=== PATIENT | male | born 1935 | race Caucasian/White ===

== ENCOUNTER → 2021-08-06 | Outpatient (CLI) | payer BC ==
[2021-08-06 12:51] LABS: ALBUMIN 4.2 g/dL (3.4-4.8)
[2021-08-06 12:52] LABS: POTASSIUM 4.8 mmol/L (3.5-5.1)
[2021-08-06 12:53] LABS: CALCIUM 9.6 mg/dL (8.3-10.5)
[2021-08-06 12:54] LABS: TOTAL PROTEIN 7.6 g/dL (6.2-8.1)
[2021-08-06 12:56] LABS: TOTAL BILIRUBIN 0.5 mg/dL (0.2-1.2)
[2021-08-06 13:05] LABS: URINE APPEARANCE HAZY; URINE BILIRUBIN NEGATIVE (NEGATIVE); URINE BLOOD 250 ery/uL (NEGATIVE); URINE COLOR YELLOW; URINE GLUCOSE NEGATIVE (NEGATIVE); URINE KETONE NEGATIVE (NEGATIVE); URINE LEUKOCYTE ESTERASE 1+ (NEGATIVE); URINE MUCUS PRESENT (NOT PRESENT); URINE NITRATE NEGATIVE (NEGATIVE); URINE PROTEIN(semi-quant) 1+ (NEGATIVE); URINE UROBILINOGEN NORMAL (NORMAL)
== END ==
LOC: LAB 11:30
PROVIDERS: Family Medicine
DX: N39.0 Urinary tract infection, site not specified (principal); R09.89 Other specified symptoms and signs involving the circulatory and respiratory systems; R41.3 Other amnesia

== ENCOUNTER → 2021-08-25 | Outpatient (CLI) | payer BC ==
[2021-08-25 16:45] LABS: URINE APPEARANCE HAZY; URINE BILIRUBIN NEGATIVE (NEGATIVE); URINE BLOOD 250 ery/uL (NEGATIVE); URINE COLOR YELLOW; URINE GLUCOSE NEGATIVE (NEGATIVE); URINE KETONE NEGATIVE (NEGATIVE); URINE LEUKOCYTE ESTERASE 2+ (NEGATIVE); URINE NITRATE NEGATIVE (NEGATIVE); URINE PROTEIN(semi-quant) 1+ (NEGATIVE); URINE UROBILINOGEN NORMAL (NORMAL); URINE WBC >50 /hpf (0-3)
[2021-08-25 16:46] LABS: URINE MUCUS PRESENT (NOT PRESENT)
== END ==
LOC: LAB 14:51
PROVIDERS: Family Medicine
DX: N39.0 Urinary tract infection, site not specified (principal)

== ENCOUNTER → 2021-09-05 | Outpatient (CLI) | payer BC ==
[2021-09-05 12:06] LABS: URINE APPEARANCE CLEAR; URINE BILIRUBIN NEGATIVE (NEGATIVE); URINE BLOOD 250 ery/uL (NEGATIVE); URINE COLOR YELLOW; URINE GLUCOSE NEGATIVE (NEGATIVE); URINE KETONE NEGATIVE (NEGATIVE); URINE LEUKOCYTE ESTERASE TRACE (NEGATIVE); URINE NITRATE NEGATIVE (NEGATIVE); URINE PROTEIN(semi-quant) TRACE (NEGATIVE); URINE UROBILINOGEN NORMAL (NORMAL); URINE WBC 0-1 /hpf (0-3)
[2021-09-05 12:07] LABS: URINE MUCUS PRESENT (NOT PRESENT)
== END ==
LOC: LAB 11:01
PROVIDERS: Family Medicine
DX: N39.0 Urinary tract infection, site not specified (principal)

== ENCOUNTER → 2022-07-22 | Outpatient (CLI) | payer BC | LOC: VAS 12:46 → RAD 12:46 | DX: I48.20 Chronic atrial fibrillation, unspecified (principal); I25.5 Ischemic cardiomyopathy ==

== ENCOUNTER → 2023-02-11 | Outpatient (CLI) | payer BC ==
[2023-02-11 12:36] LABS: URINE APPEARANCE CLEAR; URINE BILIRUBIN NEGATIVE (NEGATIVE); URINE BLOOD 250 ery/uL (NEGATIVE); URINE COLOR YELLOW; URINE GLUCOSE NEGATIVE (NEGATIVE); URINE KETONE NEGATIVE (NEGATIVE); URINE LEUKOCYTE ESTERASE NEGATIVE (NEGATIVE); URINE NITRATE NEGATIVE (NEGATIVE); URINE PROTEIN(semi-quant) TRACE (NEGATIVE); URINE UROBILINOGEN NORMAL (NORMAL); URINE WBC 0-1 /hpf (0-3)
== END ==
LOC: LAB 10:31
PROVIDERS: Urology
DX: R31.29 Other microscopic hematuria (principal)

== ENCOUNTER → 2023-05-26 | Outpatient (CLI) | payer BC ==
[2023-05-26 11:42] LABS: CALCIUM 9.1 mg/dL (8.3-10.5)
== END ==
LOC: LAB 11:14
PROVIDERS: Family Medicine
DX: N18.31 Chronic kidney disease, stage 3a (principal); F01.A0 Vascular dementia, mild, without behavioral disturbance, psychotic disturbance, mood disturbance, and anxiety

== ENCOUNTER → 2023-08-12 | Outpatient (CLI) | payer BC ==
[~2023-08-12] MED LIST: Iohexol 350 - 100 ML VIAL IV ONE
[2023-08-12 14:30] LABS: CALCIUM 10.1 mg/dL (8.3-10.5)
[2023-08-12 14:58] LABS: PH-URINE 5.5 (5.0 - 8.0); URINE APPEARANCE CLEAR (CLEAR); URINE COLOR YELLOW (YELLOW); URINE GLUCOSE NEGATIVE (NEGATIVE); URINE KETONE NEGATIVE (NEGATIVE); URINE PROTEIN(semi-quant) 3+ (NEGATIVE)
[2023-08-12 14:59] LABS: URINE BILIRUBIN NEGATIVE (NEGATIVE); URINE BLOOD 2+ (NEGATIVE); URINE LEUKOCYTE ESTERASE NEGATIVE (NEGATIVE); URINE NITRATE NEGATIVE (NEGATIVE)
== END ==
LOC: LAB 14:03
PROVIDERS: Family Medicine
DX: I51.7 Cardiomegaly (principal)
CPT/HCPCS: Q9967

== ENCOUNTER → 2023-09-29 | Outpatient (CLI) | payer BC ==
[2023-11-18 11:50] LABS: CALCIUM 8.9 mg/dL (8.3-10.5)
== END ==
LOC: LAB 14:43
PROVIDERS: Family Medicine
DX: N17.9 Acute kidney failure, unspecified (principal)

== ENCOUNTER 2023-09-30 20:20 | Emergency (ER) | payer BC ==
[~2023-09-30 20:20] MED LIST changes: -Iohexol 350 - 100 ML VIAL IV ONE; +cefTRIAXone 1 G,Lidocaine 2.1 ML IM ONE
[2023-11-18 15:24] LABS: BASO # 0.02 K/mm3 (0.02-0.10); EOS # 0.03 K/mm3 (0.04-0.40); EOS % 0.3 % (0.0-4.0); HEMATOCRIT 32.9 % (42.0-52.0); HEMOGLOBIN 10.8 g/dL (13.5-18.0); LYMPH# 0.16 K/mm3 (1.50-4.00); MEAN CELL VOLUME 89 fl (78-100); MEAN CORPUSCULAR HEMOGLOBIN 29 pg (27-31); MEAN CORPUSCULAR HGB CONC 33 g/dL (33-37); MEAN PLATELET VOLUME 11.4 fl (7.4-10.4); MONO # 0.26 K/mm3 (0.20-0.80); NEU # 10.46 K/mm3 (1.40-6.50); PLATELET COUNT 235 K/mm3 (130-400); RED BLOOD COUNT 3.69 M/mm3 (4.20-5.60); RED CELL DISTRIBUTION WIDTH 15.2 % (11.5-14.5)
[2023-11-18 15:27] LABS: ALBUMIN 3.3 g/dL (3.4-4.8); CALCIUM 8.7 mg/dL (8.3-10.5); TOTAL BILIRUBIN 0.6 mg/dL (0.2-1.2); TOTAL PROTEIN 6.7 g/dL (6.2-8.1)
[2023-11-18 15:50] LABS: URINE APPEARANCE SLIGHTLY CLOUDY (CLEAR); URINE BILIRUBIN NEGATIVE (NEGATIVE); URINE BLOOD 2+ (NEGATIVE); URINE COLOR YELLOW (YELLOW); URINE GLUCOSE NEGATIVE (NEGATIVE); URINE KETONE NEGATIVE (NEGATIVE); URINE LEUKOCYTE ESTERASE 1+ (NEGATIVE); URINE NITRATE POSITIVE (NEGATIVE); URINE PROTEIN(semi-quant) 2+ (NEGATIVE)
== END 2023-09-30 23:00 | disposition home or self-care (01) ==
LOC: ED 20:20
PROVIDERS: Nurse Practitioner
DX: N39.0 Urinary tract infection, site not specified (principal)
CPT/HCPCS: J0696

== ENCOUNTER → 2024-01-27 | Outpatient (CLI) | payer BC ==
[~2024-01-27] VITALS: Ht 167.6 cm; Wt 85.4 kg
[~2024-01-27] MED LIST changes: +CENTRUM SILVER1 EAC4 PO; +DONEPEZIL HCL5 M1 PO; +ELIQUIS5 MG PO; +FUROSEMIDE20 MG PO; +ZESTRIL5 M1 PO; -cefTRIAXone 1 G,Lidocaine 2.1 ML IM ONE
[2024-01-27 09:15] VITALS: BP 145/88
== END ==
LOC: AMSURD 09:00
DX: Z46.6 Encounter for fitting and adjustment of urinary device (principal)
CPT/HCPCS: A4340

== ENCOUNTER → 2024-02-19 | Outpatient (CLI) | payer BC ==
[~2024-02-19] VITALS: Ht 167.6 cm; Wt 85.4 kg
[2024-02-19 17:00] VITALS: BP 153/86
== END ==
LOC: AMSURD 16:18
DX: R33.8 Other retention of urine (principal)

== ENCOUNTER → 2024-03-20 | Outpatient (CLI) | payer BC ==
[~2024-03-20] VITALS: Ht 167.6 cm; Wt 85.4 kg
[~2024-03-20] MED LIST changes: +CEPHALEXIN500 M1 PO; +MACROBID 100 M100 MG PO
[2024-03-20 15:10] VITALS: BP 138/84
--- NOTE | 2024-03-20 16:24 | NUR ---
PT ARRIVED AMBULATORY WITH TO ROOM 5 FOR SUPRAPUBIC CATHETER CHANGE. NOTED RED RAISED RASH AROUND CATH INSERTION SITE AND IN ABDOMINAL SKIN FOLD JUST ABOVE THE CATHETER SITE. INSTRUCTED TO HAVE PCP LOOK AT THIS, AND IN THE MEAN TIME TRY TO KEEP IT DRY. ALSO NOTED MUCOUS PLUGS AND SEDIMENT IN URINE WHEN CATHETER WAS DRAINED. THERE IS AN ODOR WHEN PT PULLS DOWN HIS PANTS, BUT WHEN I DRAINED THE CATHETER, THE URINE ITSELF DOES NOT SMELL BAD. URINE IS CLEAR MALINDA WITH SEDIMENT AND MUCOUS NOTED. CLEANED AROUND INSERTION SITE WITH BETADINE PRIOR TO REMOVING EXISTING CATH. REMOVED 30ML OF WATER FROM THE 30ML BALLOON AND THEN REMOVED CATH. SOME DISCOMFORT NOTED WITH REMOVAL. SMALL AMOUNT OF BLOODY FLUID DRAINING FROM CATH SITE AFTER CATH REMOVED. CLEANED SITE WITH BETADINE, DONNED STERILE GLOVES AND INSERTED LUBRICATED 20FR 30ML CATHETER. SOME DISCOMFORT NOTED AGAIN WITH INSERTION. OBTAINED URINE RETURN RIGHT AWAY - URINE AGAIN IS NOTED TO HAVE SOME THICK MUCOUS STRINGS WHEN DRAINED INTO IRRIGATION TRAY. FLUSHED CATH WITH 180ML STERILE WATER AND ALLOWED CATH TO DRAIN - 200ML URINE/WATER RETURNED AFTER A COUPLE MINUTES OF DRAINING - DRAINED OUT SLOWLY. REQUESTED A LEG BAG, SO WE CONNECTED CATH TO A LEG BAG AND DEMONSTRATED HOW TO ATTACH BAG TO LEG AND HOW TO DRAIN THE BAG. CORKY IS ABLE TO DO THIS, BUT IT IS A STRUGGLE FOR HIM. EXPLAINED THAT KEEPING THE LARGER DRAINAGE BAG CONNECTED MIGHT BE EASIER FOR HIM FOR DAILY USE, AND JUST USE THE LEG BAG WHEN HE GOES OUT TO [place] OR TO AN APPOINTMENT. PATIENT AND ARE GRATEFUL FOR THE INFORMATION, AND INSTRUCTION. GAVE THEM THE PHONE NUMBER FOR NURSES STATION AND OUTPATIENT NURSE IF THEY HAVE ANY QUESTIONS OR CONCERNS. STATES SHE WILL MAKE AN APPOINTMENT WITH DR THOMAS TO DISCUSS RASH, DECREASED URINE OUTPUT AND SHORTNESS OF BREATH. STATES THEY ALREADY KNOW HE HAS A "WEAK HEART". LEFT [facility] AMBULATORY .
== END ==
LOC: AMSURD 14:52
DX: Z45.2 Encounter for adjustment and management of vascular access device (principal)

== ENCOUNTER 2024-03-29 20:49 | Emergency (ER) | payer BC ==
[~2024-03-29] VITALS: Ht 165.1 cm; Wt 78.6 kg
[~2024-03-29 20:49] MED LIST changes: -CEPHALEXIN500 M1 PO; -MACROBID 100 M100 MG PO
[2024-03-29 21:27] LABS: URINE APPEARANCE CLOUDY (CLEAR); URINE BILIRUBIN NEGATIVE (NEGATIVE); URINE BLOOD 3+ (NEGATIVE); URINE COLOR YELLOW (YELLOW); URINE GLUCOSE NEGATIVE (NEGATIVE); URINE KETONE NEGATIVE (NEGATIVE); URINE LEUKOCYTE ESTERASE 3+ (NEGATIVE); URINE NITRATE POSITIVE (NEGATIVE); URINE PROTEIN(semi-quant) 3+ (NEGATIVE)
[2024-03-29 21:30] LABS: URINE WBC >50 /hpf (0-3)
[2024-03-29] MEDS ORDERED: Cephalexin 500 MG CAP PO ONE (21:45)
[2024-03-29] MEDS ORDERED: Home Cephalexin 500 MG #2 CAP/PACK PO ONE ×2 (21:45)
[2024-03-29] MEDS ORDERED: CEPHALEXIN500 M1 PO (21:48)
[2024-03-29 22:26] VITALS: BP 128/84
== END 2024-03-29 22:27 | disposition home or self-care (01) ==
LOC: ED 20:49
PROVIDERS: Nurse Practitioner Family
DX: T83.098A Other mechanical complication of other urinary catheter, initial encounter (principal); N39.0 Urinary tract infection, site not specified; Z95.0 Presence of cardiac pacemaker